=== PATIENT | male | born 1960 | race Caucasian/White ===

== ENCOUNTER 2024-02-09 07:13 | Day surgery (SDC) | payer OTHER, SELFPAY ==
--- NOTE | 2024-02-09 | PATH_ITS ---
[facility] Accession Number: [id number] No. of containers..01 Tissue . 01 Material submitted: . colon - SIGMOID POLYP . 01 Diagnosis: SIGMOID COLON, POLYP: Tubular adenoma. MRV 02/13/2024 1325 Local . 01 Electronically signed: . Modesta Cowan MD, Pathologist NPI- [id number] . 01 Gross description: . SIGMOID POLYP: Received in formalin is 1 fragment(s) of crawford, soft tissue measuring 0.6 x 0.6 x 0.3 cm submitted entirely in 1 cassette(s) /FER 02/10/2024 0155 Local . 01 Pathologist provided ICD-10: D12.5 . 01 CPT . 270295 Specimen Comment: A courtesy copy of this report has been sent to [phone] Performed at: 01 [facility] [address] [place] [address], [place], [place] [id number] MD Leroy Ly MD Phone: [phone]
[2024-02-09 07:41] VITALS: BP 121/78; PULSE 56; RESP 16; TEMP 37.1; O2SAT 95
--- NOTE | 2024-02-09 07:49 | P.HP_ITS ---
History of Present Illness History of Present Illness Date Patient Seen: 02/09/24 Time Patient Seen: 07:49 Chief complaint: Colonoscopy Narrative: Solitario is a 63-year-old man who presents for colonoscopy. He had 1 about 10 years ago that was normal. No family history of colon cancer. Meds Home Medications and Allergies Home Medications Medication Instructions Recorded Confirmed Type duloxetine 30 mg capsule,delayed ##0 07/02/17 History release (Cymbalta) esomeprazole magnesium 40 mg ##0 07/02/17 History capsule,delayed release (Nexium) hydrocodone 5 mg-acetaminophen 325 1 - 2 tab PO Q6H PRN #10 tabs 07/02/17 Rx mg tablet ([place]) trazodone 50 mg tablet ##0 07/02/17 History sodium,potassium,mag sulfates 17.5 See Rx Instructions PO .COMPLEX 01/06/24 Rx gram-3.13 gram-1.6 gram oral soln #354 mL (Suprep Bowel Prep Kit) Allergies Allergy/AdvReac Type Severity Reaction Status Date / Time No Known Allergies Allergy Uncoded 03/08/18 12:46 Exam Const General: healthy appearing Assessment & Plan Assessment and plan (1) Colon cancer screening: Status: Acute Plan We reviewed the risks and benefits colonoscopy for colon cancer screening and he would like to proceed.
[2024-02-09] MEDS: LACTATED RINGERS 1,000 ML 100 ML IV (07:53)
--- NOTE | 2024-02-09 08:55 | PM.OP.COLON ---
Operative Date/Time/Diagnoses Date of procedure: 02/09/24 Time of procedure: 08:55 Pre-op diagnosis: Colon cancer screening Post-op diagnosis: same Procedure & Clinicians Study performed: Colonoscopy Same procedure as scheduled: Yes Surgeon: New Sparrow Procedure Notes Procedure in detail: Surgeon: New Sparrow MD Anesthesia: Modesta Gregory CRNA Procedure: The patient was brought to the endoscopy suite, placed in left lateral decubitus position. The patient was connected to monitoring devices. A time-out was performed. Sedation was administered. Once the patient was adequately sedated, a digital rectal exam was performed and was normal. The scope was then inserted and advanced to the cecum where the appendiceal orifice was identified and photographed. The scope was then slowly withdrawn over greater than 6 minutes. The mucosa was thoroughly inspected. There was a 5 mm polyp in the proximal sigmoid colon removed with a cold snare. There was sigmoid diverticulosis. The scope was retroflexed in the rectum. No other abnormalities were seen. The scope was straightened and removed. The patient was awakened and brought to recovery. Scope withdrawal time: 10 minutes Sedation time: 14 minutes EBL: 2 mL Findings: 5 mm sigmoid colon polyp and sigmoid diverticulosis Post-procedure Disposition: PACU
[2024-02-09 08:58] VITALS: BP 138/97; PULSE 58; RESP 20; TEMP 36.6; O2SAT 94
[2024-02-09 09:03] VITALS: BP 129/76; PULSE 60; RESP 20; TEMP 36.4; O2SAT 94
[2024-02-09 09:08] VITALS: BP 126/70; PULSE 61; RESP 18; TEMP 36.4; O2SAT 95
[2024-02-09 09:16] VITALS: BP 130/78; PULSE 63; RESP 20; TEMP 36.3; O2SAT 95
== END 2024-02-09 09:18 | disposition home or self-care (01) ==
PROVIDERS: Referring Provider Surgery; Visit Provider Surgery
PROC: 0DJD8ZZ Inspection of Lower Intestinal Tract, Via Natural or Artificial Opening Endoscopic (ICD-10-PCS; CPT 45378; principal; 2024-02-09 08:15)
DX: Z12.11 Encounter for screening for malignant neoplasm of colon (principal); K57.30 Diverticulosis of large intestine without perforation or abscess without bleeding; D12.5 Benign neoplasm of sigmoid colon
CPT/HCPCS: 45385; J2704